=== PATIENT | male | born 1940 | race African-American/Black ===

== ENCOUNTER 2017-01-21 15:23 | Day surgery (SDC) | payer BC ==
--- NOTE | ~2017-01-21 | EGD ---
EGD REPORT [facility] [address] [place]. [place] [address] NAME: ANNA MARTINEZ : 36 STATUS : [facility] PAT#: [id number] AGE: 76 ADM/REG DATE : 01/21/17 MR#: [id number] REPORT SERV DATE: 01/21/17 DICTATED BY: RONY CARR DATE: 01/21/17 REPORT STATUS : Draft TRANSCRIBED BY: [employer] DATE: 01/21/17 [facility] Patient Name: Anna Martinez Date of : 1940 Attending MD: RONY CARR MD Procedure Date No Time: 01/21/2017 Procedure: Upper GI endoscopy Indications: esophageal food bolus Referring MD: KEITH BARRON Medicines: General Anesthesia Complications: No immediate complications. Procedure: Pre-Anesthesia Assessment: - ASA Grade Assessment: II - A patient with mild systemic disease. - ASA Grade Assessment: II - A patient with mild systemic disease. After obtaining informed consent, the endoscope was passed under direct vision. Throughout the procedure, the patient's blood pressure, pulse, and oxygen saturations were monitored continuously. The GIF [id number] was introduced through the mouth, and advanced to the third part of duodenum. The upper GI endoscopy was accomplished without difficulty. The patient tolerated the procedure. Findings: Food was found in the lower third of the esophagus. removed with shah net A mild Schatzki ring (acquired) was found at the gastroesophageal junction. The entire examined stomach was normal. The cardia and gastric fundus were normal on retroflexion. The examined duodenum was normal. Impression: - Food in the lower third of the esophagus. - Mild Schatzki ring. - Normal stomach. - Normal examined duodenum. Recommendation: - Clear liquid diet today. - Full liquid diet for 1 day. - Mechanical soft diet daily. - Repeat the upper endoscopy in 10 days for retreatment. Procedure Code(s): --- Professional --- 35972, Esophagogastroduodenoscopy, flexible, transoral; EGD REPORT [address] [address] NAME: ANNA MARTINEZ : 36 STATUS : [facility] PAT#: [id number] AGE: 76 ADM/REG DATE : 01/21/17 MR#: [id number] REPORT SERV DATE: 01/21/17 DICTATED BY: RONY CARR DATE: 01/21/17 REPORT STATUS : Draft TRANSCRIBED BY: [employer] DATE: 01/21/17 diagnostic, including collection of specimen(s) by brushing or washing, when performed (separate procedure) Diagnosis Code(s): --- Professional --- T18.128A, Food in esophagus causing other injury, initial encounter K22.2, Esophageal obstruction CPT copyright 2013 [employer]. All rights reserved. The codes documented in this report are preliminary and upon music leader review may be revised to meet current compliance requirements. RONY CARR MD 01/21/2017 7:47 PM This report has been signed electronically. Number of Addenda: 0 Note Initiated On: 01/21/2017 6:25 PM Scope Withdrawal Time 0 hours 0 minutes 0 seconds
[2017-01-21 18:23] LABS: BASOPHILS 0 %; EOSINOPHILS 0.3 %; EOSINOPHILS ABSOLUTE 0.03 10/3/uL (0.0-0.53); ER CBC TAT 0 Hrs 07 Mins; HEMATOCRIT 41.3 % (40.0-51.0); HEMOGLOBIN 13.7 g/dL (13.6-17.8); IMMATURE GRANULOCYTES 0.2 %; IMMATURE GRANULOCYTES ABSOLUTE 0.02 10/3/uL (0.0-0.11); LYMPHOCYTES 17.2 %; MEAN CORPUS HGB CONC 33.2 g/dL (32.0-36.0); MEAN CORPUSCULAR HEMOGLOB 30.5 pg (26.0-34.0); MEAN PLATELET VOLUME 10.4 fL (9.2-13.0); MONOCYTES 7.2 %; MONOCYTES ABSOLUTE 0.63 10/3/uL (0.21-1.20); NEUTROPHILS 75.1 %; NEUTROPHILS ABSOLUTE 6.55 10/3/uL (2.02-8.40); PLATELET COUNT 234 10/3/uL (150-400); RBC DISTRIBUTION WIDTH 14.3 % (12.0-16.0); RED CELL COUNT 4.49 10/6/uL (4.7-6.1); WHITE BLOOD CELLS 8.7 10/3/uL (4.5-10.5)
[2017-01-21 18:25] LABS: MANUAL DIFF NO %
[2017-01-21 18:32] LABS: BUN (BLOOD UREA NITROGEN) 19 MG/DL (6-23); CALCIUM, SERUM 9.1 MG/DL (8.5-10.4); CHLORIDE, SERUM 105 MMOL/L (96-112); CO2 (CARBON DIOXIDE) 24 MMOL/L (24-34); CREATININE 1.55 MG/DL (0.70-1.30); GFR AFRICAN AMERICAN 49 ML/MIN (>=60); GFR NON AFRICAN AMERICAN 42 ML/MIN (>=60); GLUCOSE, SERUM 111 MG/DL (60-99); SODIUM, SERUM 139 MMOL/L (135-148)
== END 2017-01-21 19:47 | disposition home or self-care (01) ==
LOC: ER 15:23 → SDC 19:08
PROVIDERS: Emergency Medicine; Internal Medicine Gastroenterology
PROC: 0DC38ZZ Extirpation of Matter from Lower Esophagus, Via Natural or Artificial Opening Endoscopic (ICD-10-PCS; principal; 2017-01-21 19:30)
DX: T18.128A Food in esophagus causing other injury, initial encounter (principal); X58.XXXA Exposure to other specified factors, initial encounter; Y93.9 Activity, unspecified; K22.2 Esophageal obstruction; I10 Essential (primary) hypertension
CPT/HCPCS: 80048; 85025; 99283; J2405; J3010